=== PATIENT | female | born 1950 | race Caucasian/White ===

== ENCOUNTER → 2016-10-02 | Outpatient (CLI) | payer MEDICAID ==
[~2016-10-02] VITALS: Ht 157.5 cm; Wt 75.0 kg
[~2016-10-02] MED LIST: CEPH-583 PO; HYDR-4246 PO; INSU100V13 SQ; INSU300I SQ; LEVO25TA9 PO; LOVA40TA2 PO; TBO-FILGRASTIM 480mcg/0.8ml INJECTION SQ ONE; [UNRECOGNIZED DRUG - CODE] PO
[2016-10-02 10:45] VITALS: Ht 157.5 cm; Wt 75.0 kg
[2016-10-16 08:43] VITALS: BP 135/61; PULSE 92; RESP 22; TEMP 96.9; O2SAT 98
== END ==
LOC: INF.THER 10:36
PROVIDERS: ATTEND Internal Medicine Hematology & Oncology
DX: D70.2 Other drug-induced agranulocytosis (principal)
CPT/HCPCS: 96372; J1447

== ENCOUNTER → 2016-10-16 | Outpatient (CLI) | payer MEDICAID ==
[~2016-10-16] VITALS: Ht 157.5 cm; Wt 72.7 kg
[2016-10-16 08:50] VITALS: Ht 157.5 cm; Wt 72.7 kg
[2016-10-16 08:55] VITALS: BP 135/61; PULSE 91; RESP 22; TEMP 96.9; O2SAT 98
== END ==
LOC: INF.THER 08:33
PROVIDERS: ATTEND Internal Medicine Hematology & Oncology
DX: D70.9 Neutropenia, unspecified (principal)
CPT/HCPCS: 96372; J1447

== ENCOUNTER → 2016-10-20 | Outpatient (CLI) | payer MEDICAID ==
[~2016-10-20] MED LIST changes: -INSU100V13 SQ; -INSU300I SQ; -LEVO25TA9 PO; -LOVA40TA2 PO; -TBO-FILGRASTIM 480mcg/0.8ml INJECTION SQ ONE
[2016-10-20 09:45] LABS: ALBUMIN 3.9 G/DL (3.5-5.0); ALBUMIN/GLOBULIN RATIO 1.9 RATIO (1.1-2.2); ALKALINE PHOSPHATASE 217 U/L (38-126); ALT (SGPT) 24 U/L (9-52); ANION GAP 15 MEQ/L (5-15); AST (SGOT) 29 U/L (14-36); BUN/CREATININE RATIO 17 RATIO (6-26); CALCIUM 9.5 MG/DL (8.4-10.2); CHLORIDE 103 MEQ/L (98-107); CO2 - CARBON DIOXIDE 23 MEQ/L (22-30); GLOMERULAR FILTRATION RATE 56; GLUCOSE 183 MG/DL (65-110); LDH 627 U/L (313-618); POTASSIUM 3.8 MEQ/L (3.6-5); SODIUM 141 MEQ/L (134-144)
== END ==
LOC: LABN 09:29
PROVIDERS: ATTEND Internal Medicine Hematology & Oncology
DX: C82.41 Follicular lymphoma grade IIIb, lymph nodes of head, face, and neck (principal)
CPT/HCPCS: 80053; 83615

== ENCOUNTER → 2016-11-02 | Outpatient (CLI) | payer MEDICAID ==
[~2016-11-02] MED LIST changes: +GADOBUTROL 10mMol/10ml INJECTION IV ONE; +INSU100V13 SQ; +INSU300I SQ; +LEVO25TA9 PO; +LOVA40TA2 PO; +SALINE FLUSH 10ml SYRINGE ONE
--- NOTE | 2016-11-02 13:59 | DI ---
EXAM: MRI BRAIN W/WO CONTRAST LOCATION OF DICTATION: [place] HISTORY: ITS.REASON: R55, R26.81, falling, dizziness, disorientation, vomiting x3 weeks. COMPARISON: No prior studies available for comparison. TECHNIQUE: Multiplanar, multisequence, MR imaging of the head with and without contrast was acquired. Contrast: 7.5 mL of Gadavist FINDINGS: The ventricles are of normal size, shape, and contour for the patient's age. There are small nonspecific punctate areas of T2-weighted and T2 FLAIR weighted signal abnormality in the deep frontoparietal white matter that most likely represent small vessel ischemic disease. This is of a degree that is considered to be normal for the patient's age. The brain stem, cerebellum, and cerebral hemispheres otherwise have a normal morphologic appearance as well as MR signal intensity on all pulse sequences. Following intravenous administration of contrast, no areas of abnormal enhancement are evident. There are no areas of restricted diffusion to suggest an acute infarct. There is no evidence of an intracranial mass lesion, intracranial hemorrhage, or hydrocephalus. The visualized portions of the orbits, calvarium, paranasal sinuses, and skull base demonstrate no significant abnormality. IMPRESSION: 1. Mild deep/subcortical white matter disease likely secondary to chronic small vessel ischemia. There is no abnormal mass effect or enhancement demonstrated. There is no restricted diffusion to suggest acute or recent infarct. .
== END ==
LOC: IMA 12:04
PROVIDERS: ATTEND Internal Medicine Hematology & Oncology
DX: R90.82 White matter disease, unspecified (principal); R55 Syncope and collapse; R26.81 Unsteadiness on feet
CPT/HCPCS: 70553; A9585; J1642

== ENCOUNTER → 2016-11-04 | Outpatient (CLI) | payer MEDICAID ==
[~2016-11-04] MED LIST changes: -GADOBUTROL 10mMol/10ml INJECTION IV ONE; -SALINE FLUSH 10ml SYRINGE ONE
== END ==
LOC: IMA.BED 08:00
PROVIDERS: ATTEND Radiology Diagnostic Radiology
DX: Z53.8 Procedure and treatment not carried out for other reasons (principal)

== ENCOUNTER 2016-11-07 15:27 | Inpatient (IN) | END 2016-11-24 12:15 | disposition short-term general hospital (02) | DRG 872 | PROVIDERS: ADMIT Internal Medicine; ATTEND Hospitalist ==